=== PATIENT | female | born 1930 | race Caucasian/White ===

== ENCOUNTER 2019-07-02 20:32 | Inpatient (IN) | payer MEDICARE, OTHER ==
[~2019-07-02] VITALS: Ht 157.5 cm; Wt 63.0 kg
[~2019-07-02 20:32] MED LIST: ACETAMINOPHEN-1 EAC1 PO; ADULT LOW DOSE81 MG PO; AEROCHAMBER PL1 EACH MC; ALBUTEROL INHAL17 GM IH; AMBIEN; AVAPRO300 MG PO; BACTRIM; CEFUROXIME250 MG PO; DIOVAN160 MG PO; HYDROCHLOROTHIA25 M1 PO; K-DUR 20 MEQ T20 MEQ PO; LEXAPRO 10 MG T10 M2 PO; MEDROL DOSPAK21 TAB PO; MOTION RELIEF25 MG PO; NEXIUM40 MG PO; NORVASC5 MG PO; OMEPRAZOLE20 MG PO; PREDNISONE50 MG PO; PROAIR HFA8.5 GM INH; PROMETHAZINE D480 M1 PO; SIMVASTATIN40 MG PO; TUSSIONEX PENN473 ML PO; TUSSIONEX PENNKI1 ML PO; VICODIN ES TAB1 EACH PO; XANAX XR1 MG PO; ZPAK PO
[2019-07-02 20:35] VITALS: BP 132/55
[2019-07-02 21:15] LABS: ABSOLUTE EOSINOPHILS 0.1 thou/uL (0.0-0.7); ABSOLUTE LYMPHOCYTES 0.8 thou/uL (0.8-5.3); ABSOLUTE MONOCYTES 0.8 thou/uL (0.0-1.2); ABSOLUTE NEUTROPHILS 5.1 thou/uL (1.6-8.1); BASOPHILS 0.5 %; EOSINOPHILS 1.5 %; HEMATOCRIT 36.8 % (37.0-47.0); HEMOGLOBIN 12.4 gm/dL (12.0-15.0); LYMPHOCYTES 12.3 %; MCH 30.4 pg (26.0-34.0); MCHC 33.7 g/dL (28.0-37.0); MCV 90.2 fL (80.0-100.0); MPV 8.2 fl. (7.2-11.1); NUCLEATED RBCS 0 /100WBC; PLATELET COUNT* 341 thou/uL (150-400); POLYS 73.7 %; RBC 4.08 mil/uL (4.20-5.00); RDW-CV 14.6 % (10.5-14.5); WBC 6.9 thou/uL (4.0-11.0)
[2019-07-02] MEDS ORDERED: ACETAMINOPHEN650 M1 PO (21:18)
[2019-07-02] MEDS ORDERED: PROAIR HFA8.5 GM INH (21:18)
[2019-07-02] MEDS ORDERED: BIOFREEZE118 ML TOP (21:19)
[2019-07-02] MEDS ORDERED: XANAX 0.5 MG0.5 MG PO (21:19)
[2019-07-02] MEDS ORDERED: LIPITOR 20 MG T20 M1 PO (21:19)
[2019-07-02] MEDS ORDERED: DULCOLAX10 MG RECTAL (21:20)
[2019-07-02] MEDS ORDERED: ENOXAPARIN60 MG/0.1 SUBQ (21:22)
[2019-07-02] MEDS ORDERED: BUSPIRONE HCL5 MG PO (21:22)
[2019-07-02] MEDS ORDERED: CARDIZEM SR 60M60 MG PO (21:22)
[2019-07-02] MEDS ORDERED: MILK OF MA400 MG/5 M PO (21:23)
[2019-07-02] MEDS ORDERED: FUROSEMIDE 40 M40 MG PO (21:23)
[2019-07-02] MEDS ORDERED: LEXAPRO 10 MG T10 M2 PO (21:23)
[2019-07-02] MEDS ORDERED: MYLANTA TONIGH355 ML PO (21:24)
[2019-07-02 21:25] LABS: URINE BILIRUBIN NEGATIVE (Negative); URINE BLOOD 1+ (Negative); URINE CLARITY SL CLOUDY; URINE COLOR YELLOW; URINE GLUCOSE-RANDOM NEGATIVE (Negative); URINE KETONES NEGATIVE (Negative); URINE LEUKOCYTES-REFLEX 1+ (Negative); URINE NITRITE-REFLEX NEGATIVE (Negative); URINE PROTEIN NEGATIVE (Negative); URINE UROBILINOGEN 0.2 E.U./dl (0.2-1.0)
[2019-07-02 21:27] LABS: CALCIUM 9.1 mg/dL (8.5-10.1); CREATININE 1.2 mg/dL (0.6-1.3); POTASSIUM 4.8 mmol/L (3.5-5.1)
[2019-07-02 21:31] LABS: ALBUMIN 3.2 g/dL (3.4-5.0); MAGNESIUM 2.4 mg/dL (1.8-2.4); TOTAL BILIRUBIN 0.5 mg/dL (<0.1-1.0); TOTAL PROTEIN 8.2 g/dL (6.4-8.2)
[2019-07-02 21:40] LABS: BACTERIA-REFLEX >30 Many /HPF (None Seen); CASTS None Seen /LPF (None Seen); CRYSTALS None Seen /LPF (None Seen); SQUAMOUS 4-10 Moderate /LPF (0-3); URINE RBC 3-10 Few /HPF (0-2); URINE WBC-REFLEX >25 Many /HPF (0-5); WBC CLUMPS Many (None Seen)
[2019-07-03 00:15] VITALS: BP 136/63
[2019-07-03 00:30] VITALS: BP 141/66
--- NOTE | 2019-07-03 04:34 | NUR ---
ASSUMED CARE FROM FROM ED, PT ORIENTED X4 ASSESSMENT AND DATA BASE COMPLETED . PAIN AND XANAX REQUESTED. NOTIFIED ORDERS RECIEVED. PT AMBULATED TO BATHROOM GAIT STEADY. BED ALARM ON FRO SAFETY.
[2019-07-03 08:10] VITALS: BP 126/65
[2019-07-03 10:22] LABS: POTASSIUM 5.1 mmol/L (3.5-5.1)
--- NOTE | 2019-07-03 15:35 | EKG ---
[place] [address] ELECTROCARDIOGRAM REPORT Name: KELLCRISTIANE D Room: [address] ADM IN M.R.#: [id number] Admission: 07/02/19 Attend Phys: Ruben Ibrahim, Discharge: Date of : 34 Date of Service: 07/02/192054 Report #: [id number] THIS REPORT FOR: //name// [facility] ED Test Date: 2019-07-02 Test Time: 20:55:36 Pat Name: CRISTIANE CASTORENA Department: Room: [facility] Gender: F Occupational Health Physiotherapist: ID : [id number] Requested By: Abbey Mae Order Number: [id number] MD: Krunal Geronimo Measurements Intervals [place] Rate: 77 P: KS: QRS: 113 QRSD: 142 T: 25 QT: 450 QTc: 510 Interpretive Statements Atrial fibrillation Ventricular premature complex Nonspecific intraventricular conduction delay Anteroseptal infarct, old Compared to ECG 02/01/2017 19:38:07 Ventricular premature complex(es) now present Intraventricular conduction delay now present Myocardial infarct finding now present Sinus rhythm no longer present Electronically Signed On 07-03-2019 15:34:08 CDT by Krunal Geronimo [email or web address] <ELECTRONICALLY SIGNED> By: Jarrod Geronimo MD, [facility] 07/03/19 1534 [id number] 54 Jarrod Geronimo MD, [facility] /EPI
[2019-07-03 17:01] VITALS: BP 99/53
--- NOTE | 2019-07-03 18:49 | NUR ---
PT A&OX4 VSS. PT UP SBA W/WALKER. PT ON FALL PRECAUTIONS. PT ON ROOM AIR. PT HAS NS RUNNING AT 80ML/HOUR. IV TO RFA PATENT, NO REDNESS/SWELLING AT SITE. DRESSING C/D/I. NO C/O NAUSEA. PT IS ACCUCHECK, NO INSULIN INDICATED PER APR. PT UP TO RECLINER FOR MEALS. PT INCONTINENT OF BLADDER, WEARING BRIEFS PER PT REQUEST. IV ANTIBIOTICS CONTINUE. PT RESTS IN ROOM WITH CALL LIGHT IN REACH. WILL CONTINUE TO MONITOR.
[2019-07-03 20:30] VITALS: BP 104/71
--- NOTE | 2019-07-04 02:14 | NUR ---
ASSUMED CARE FROM DAY SHIFT PT HAVE NO CONCERNS OR COMPLAINTS VOICED , PT TO BATHROOM VOIDING WITHOUT DIFF . DISCUSSED PLAN OF CARE VERBALIZED UNDERSTANDING AND AGREEABLE. TALKED WITH DAUGHTER REGARDING PLAN OF CARE AND PT STATUS.. PT RESTED WELL THROUGHOUT HOURLY ROUNDS, WILL REPORT CHANGES OR ABNORMAL FINDINGS.
[2019-07-04 04:39] LABS: HEMATOCRIT 33.5 % (37.0-47.0); HEMOGLOBIN 11.2 gm/dL (12.0-15.0); MCH 30.5 pg (26.0-34.0); MCHC 33.6 g/dL (28.0-37.0); MCV 90.8 fL (80.0-100.0); MPV 8.9 fl. (7.2-11.1); RBC 3.68 mil/uL (4.20-5.00); RDW-CV 14.4 % (10.5-14.5); WBC 6.5 thou/uL (4.0-11.0)
[2019-07-04 04:59] LABS: ALBUMIN 2.6 g/dL (3.4-5.0); CALCIUM 8.6 mg/dL (8.5-10.1); CREATININE 1.1 mg/dL (0.6-1.3); MAGNESIUM 2.4 mg/dL (1.8-2.4); POTASSIUM 4.7 mmol/L (3.5-5.1); TOTAL BILIRUBIN 0.4 mg/dL (<0.1-1.0); TOTAL PROTEIN 6.8 g/dL (6.4-8.2)
[2019-07-04 07:08] LABS: GLYCOHEMOGLOBIN (HGB A1C) 6.3 % (4.8-5.6)
[2019-07-04 08:17] VITALS: BP 117/33
--- NOTE | 2019-07-04 16:28 | NUR ---
SW spoke with pt dtr at length to complete initial assessment and discuss safe dc planning. Pt lives at [facility]. Pt had been to [facility] and then went to [facility] as SNF and then moved into their LTC. Pt has hx of [facility] and had lived alone prior to April 2019. Pt dtr expressed that pt had shared with pt dtr that pt does not want to return to LTC but pt dtr said she was not certain pt had any other options at this time due to COVID and pt dtr is caring for pt dtr . SW to continue to follow to assist with safe dc planning and likely return to [facility] at [place].
--- NOTE | 2019-07-04 18:56 | NUR ---
PT A&Ox4. VITALS STABLE. UP AD MIRNA. IV PATENT, INFUSING. TOLERATING DIET. DENIED PAIN. CALL LIGHT WITHIN REACH. WILL CONTINUE TO MONITOR.
--- NOTE | 2019-07-05 06:30 | NUR ---
PT SLEPT WELL WITHOUT COMPLAINTS. HS ACCUCHECK 165, REFUSING INSULIN. DENIES PAIN THIS SHIFT. UP WITH SBA OVERNIGHT TO BR TO VOID. AM LAB DRAWN. RFA IVF INFUSING PER PUMP. ABLE TO USE CALL LITE AND MAKE NEEDS KNOWN. HOPEFUL FOR DISCHARGE SOON.
[2019-07-05 09:05] VITALS: BP 110/49
[2019-07-05 09:33] LABS: CALCIUM 8.3 mg/dL (8.5-10.1); CREATININE 0.8 mg/dL (0.6-1.3); POTASSIUM 4.2 mmol/L (3.5-5.1)
[2019-07-05 16:00] VITALS: BP 118/56
--- NOTE | 2019-07-05 16:38 | NUR ---
SW faxed referral/updates to [facility] in anticipation of possible dc soon. SW attempted to call pt but pt did not answer and SW spoke with nurse who said that pt was on the phone. SW to try to speak with pt again in the morning about dc plan and likely return to [facility].
[2019-07-05 20:00] VITALS: BP 113/68
--- NOTE | 2019-07-06 06:36 | NUR ---
PATIENT SLEPT MOST OF THE NIGHT. IV REMAINS SALINE LOCKED. PATIENT HAD NO COMPLAINTS OF PAIN OR NAUSEA. PATIENT IS POSSIBLY DISCHARGING BACK TO [facility] TODAY. WILL CONTINUE TO MONITOR.
[2019-07-06 08:06] VITALS: BP 108/59
[2019-07-06] MEDS ORDERED: TRAMADOL 50 MG50 MG PO (11:15)
[2019-07-06] MEDS ORDERED: AMOX TR-K CLV1 EAC3 PO (11:15)
[2019-07-06] MEDS ORDERED: XANAX 0.5 MG0.5 MG PO (11:15)
[2019-07-06 11:25] VITALS: BP 108/59
--- NOTE | 2019-07-06 13:03 | NUR ---
PT DISCHARGED TO [facility] BY WHEELCHAIR WITH NURSING STAFF AND WHEELCHAIR VAN AT 1300. IV OUT. PT STABLE. PERSONAL ITEMS SENT WITH PT. PAPER SCRIPTS SENT WITH PT.
--- NOTE | 2019-07-06 14:08 | NUR ---
ORDERS RECEIVED. PATIENT DC'ED PRIOR TO P.T. EVALUATION. JENNY WANG,MPT
== END 2019-07-06 13:04 | DRG 690 ==
LOC: M.ERS 20:32 → M.TBA-ER 23:23 → M.3W 23:23
PROVIDERS: Emergency Medicine; Internal Medicine; ADMIT Internal Medicine
DX: N39.0 Urinary tract infection, site not specified (principal); R65.10 Systemic inflammatory response syndrome (SIRS) of non-infectious origin without acute organ dysfunction; E44.1 Mild protein-calorie malnutrition; E87.1 Hypo-osmolality and hyponatremia; I10 Essential (primary) hypertension; I50.9 Heart failure, unspecified; M81.0 Age-related osteoporosis without current pathological fracture; R31.9 Hematuria, unspecified; G20 Parkinson's disease; Z79.82 Long term (current) use of aspirin; Z86.73 Personal history of transient ischemic attack (TIA), and cerebral infarction without residual deficits; Z79.899 Other long term (current) drug therapy; Z88.8 Allergy status to other drugs, medicaments and biological substances; Z68.25 Body mass index [BMI] 25.0-25.9, adult